=== PATIENT | female | born 1950 | race Asian ===

== ENCOUNTER → 2017-07-20 | Outpatient (CLI) | payer OTHER | LOC: BRMIMAGING 10:39 | PROVIDERS: ATTEND Obstetrics & Gynecology | DX: Z12.31 Encounter for screening mammogram for malignant neoplasm of breast (principal) ==

== ENCOUNTER → 2018-08-19 | Outpatient (CLI) | payer OTHER | LOC: BRMIMAGING 10:34 | DX: Z12.31 Encounter for screening mammogram for malignant neoplasm of breast (principal) ==